=== PATIENT | female | born 1965 | race American Indian/Alaskan Native ===

== ENCOUNTER 2019-02-13 07:19 | Emergency (ER) | payer MEDICARE ==
[2019-02-13 07:25] VITALS: BP 154/72
[2019-02-13] MEDS ORDERED: NORCO 5/325 PO ONE (08:56)
--- NOTE | 2019-02-13 08:59 | Emergency Department Report ---
HPI - General Chief Complaint: Back Pain/Injury Time Seen by Provider: 02/13/19 08:45 - HPI HPI: 53 yo AA F presents to the ED with two complaints. First, the patient has been dealing with a mixed dry and productive cough for the past two days. She denies any fever, N/V, SOB. Secondly, the patient complains of right lower lateral back pain that radiates around to the front. It worens with movement and palpation. No trauma or falls or inciting events. She took some Aleve at 5 AM with some mild transient relief. She also says that yesterday, and through the evening, she had some pain to the left flank and abdomen that was "moving around" but has since resolved. No problems with bowel or bladder, numbness or paresthesias, or any neurological deficits. No recent travel or sick contacts at home. She has a pmhx of hypothyroidism and OA, and GERD. ED Past Medical Hx - Past Medical History Additional medical history: thyroid - Surgical History Additional Surgical History: thyroidectomy, goiter removal - Social History Smoking Status: Never Smoker Substance Use Type: None - Medications Home Medications: Home Medications Medication Instructions Recorded Confirmed Last Taken Type Benzonatate [Tessalon Perles] 100 mg PO Q8HR PRN #20 capsule 02/13/19 Unknown Rx Cyclobenzaprine [Flexeril] 10 mg PO TID PRN #12 tablet 02/13/19 Unknown Rx ED Review of Systems ROS: Stated complaint: LOWER BACK PAIN Other details as noted in HPI Comment: All other systems reviewed and negative Constitutional: denies: chills, fever Eyes: denies: eye pain, vision change ENT: denies: ear pain, throat pain Respiratory: denies: cough, shortness of breath Cardiovascular: denies: chest pain, palpitations Gastrointestinal: abdominal pain. denies: vomiting Genitourinary: denies: dysuria, discharge Musculoskeletal: back pain. denies: arthralgia Skin: denies: rash, lesions Neurological: denies: headache, weakness Physical Exam - Physical Exam Vital Signs: Vital Signs 02/13/19 07:23 Temperature 97.6 F Pulse Rate 79 Respiratory 20 Rate Blood Pressure 154/72 O2 Sat by Pulse 100 Oximetry Physical Exam: GENERAL: The patient is well-developed well-nourished. HENT: Normocephalic. Atraumatic. Patient has moist mucous membranes. EYES: Extraocular motions are intact. Pupils equal reactive to light bilaterally. NECK: Supple. Trachea is midline. CHEST/LUNGS: Clear to auscultation. Occasional productive sounding cough is heard during examination. No tachypnea or accessory muscle use. There is no respiratory distress noted. HEART/CARDIOVASCULAR: Regular. There is no tachycardia. There is no murmur. ABDOMEN: Abdomen is soft, nontender. Patient has normal bowel sounds. There is no abdominal distention. SKIN: Skin is warm and dry. NEURO: The patient is awake, alert, and oriented. The patient is cooperative. The patient has no focal neurologic deficits. The patient has normal speech. MUSCULOSKELETAL: There is no tenderness or deformity. There is no limitation range of motion. There is no evidence of acute injury. BACK: No midline thoracic or lumbar tenderness to palpation, step-off or deformity. There is some reproducible right lateral back pain to palpation. ED Course Vital Signs 02/13/19 07:23 Temperature 97.6 F Pulse Rate 79 Respiratory 20 Rate Blood Pressure 154/72 O2 Sat by Pulse 100 Oximetry ED Medical Decision Making - Lab Data Result diagrams: 02/13/19 09:33 02/13/19 09:33 - Radiology Data Radiology results: report reviewed, image reviewed interpreted by me: Chest x-ray does not show any acute process. There are no pleural effusions, obvious pneumonia and there is no pneumothorax. CT ABDOMEN PELVIS WITHOUT CONTRAST: HISTORY: Right flank pain. COMPARISON: none. TECHNIQUE: Helical CT in 1.25mm intervals without IV contrast. Sagittal and coronal reconstructions. FINDINGS: Lung bases: Normal. Liver: Within normal limits. Calcified granulomas noted in the central liver. Biliary system: Normal. Pancreas: Normal. Spleen: Normal. Kidneys/ureters/bladder: Normal. Adrenal glands: There is an approximate 2 cm low density left adrenal lesion with internal density measuring -9 Hounsfield units. This is suggestive of an adrenal adenoma. The right adrenal gland is normal. Aorta: Normal. Intestines: Within normal limits given no oral contrast was administered. Appendix: Normal. Pelvic viscera: Normal. Ascites: None. Adenopathy: None. Musculoskeletal: Intact. Mild degenerative changes in the visualized spine. No fracture or suspicious bony lesion left L5 hemitransitional vertebra is noted. IMPRESSION: No acute process is identified. Left adrenal adenoma. Mild degenerative changes in the spine. Transcribed By: TTR Dictated By: BECKIE PICKENS JR, MD Electronically Authenticated By: BECKIE PICKENS JR, MD Signed Date/Time: 02/13/19 1113 - Medical Decision Making Patient presents with 2 complaints. Regarding her cough, an x-ray was done that does not show any pneumonia, pleural effusions, pneumothorax, focal consolidation, or any other acute process. She will be given an antitussive medication. Regarding her low back pain and her previous complaints of left flank and abdominal pain, a CT scan of the abdomen and pelvis was done without contrast that did not show any signs of nephrolithiasis or any other acute process but incidentally she has a large left adrenal adenoma. This incidental finding was discussed with the patient for follow-up with her primary care physician. The rest of her labs were unremarkable. She was given a dose of [place] for her discomfort with some improvement. Despite her back pain, she has no problems with bowel or bladder, numbness or paresthesias or any neurological deficits. She was seen ambulatory prior to discharge. She appears low suspicion for any of the emergent back condition such as cauda equina, epidural abscess or cord compression syndrome. - Differential Diagnosis nephrolithiasis, pyelonephritis, UTI, lumbar strain Critical Care Time: No Critical care attestation.: If time is entered above; I have spent that time in minutes in the direct care of this critically ill patient, excluding procedure time. ED Disposition Clinical Impression: Cough Upper respiratory infection Qualifiers: URI type: unspecified URI Qualified Code(s): J06.9 - Acute upper respiratory infection, unspecified Back pain Qualifiers: Back pain location: low back pain Chronicity: unspecified Back pain laterality: unspecified Sciatica presence: without sciatica Qualified Code(s): M54.5 - Low back pain Disposition: DC-01 TO HOME OR SELFCARE Is pt being admited?: No Condition: Stable Instructions: Upper Respiratory Infection (ED), Back Pain (ED) Additional Instructions: Please follow-up with your primary care physician in the next few days. Return to the emergency Department with any worsening of your symptoms or any acute distress. You have been prescribed a medication that is sedating and therefore should not be taken prior to driving, working, and responsible for children and in no way should be mixed with alcohol of any quantity. Prescriptions: Cyclobenzaprine [Flexeril] 10 mg PO TID PRN #12 tablet PRN Reason: Muscle Spasm Benzonatate [Tessalon Perles] 100 mg PO Q8HR PRN #20 capsule PRN Reason: Cough Referrals: MIGUEL LAFLEUR [Primary Care Provider] - 2-3 Days Forms: Work/School Release Form(ED) Time of Disposition: 11:37
--- NOTE | 2019-02-13 09:45 | XRay Report ---
XRAY CHEST TWO VIEWS: 02/13/19 07:19:00 CLINICAL: Cough. COMPARISON: None FINDINGS: Normal heart and pulmonary vasculature. The lungs are normally expanded and clear.Degenerative changes in the spine. IMPRESSION: No acute cardiopulmonary process.
[2019-02-13 10:15] LABS: Alanine Aminotransferase 14 units/L (7-56); Albumin 3.6 g/dL (3.9-5); BUN/Creatinine Ratio 13; Blood Urea Nitrogen 10 mg/dL (7-17); Calcium 8.7 mg/dL (8.4-10.2); Hemolysis Index 18
[2019-02-13 10:38] LABS: Basophils % (Auto) 0.2 % (0.0-1.8); Eosinophils # (Auto) 0.1 K/mm3 (0.0-0.4); Eosinophils % (Auto) 1.6 % (0.0-4.3); Hematocrit 37.8 % (30.3-42.9); Hemoglobin 12.7 gm/dl (10.1-14.3); Lymphocytes # (Auto) 1.5 K/mm3 (1.2-5.4); Mean Corpuscular HGB Conc 34 % (30-34); Mean Corpuscular Volume 95 fl (79-97); Monocytes # (Auto) 0.5 K/mm3 (0.0-0.8); Monocytes % (Auto) 9.8 % (0.0-7.3); Platelet Count 284 K/mm3 (140-440); Red Blood Count 3.97 M/mm3 (3.65-5.03); Red Cell Distribution Width 13.9 % (13.2-15.2)
--- NOTE | 2019-02-13 11:17 | Cat Scan Report ---
CT ABDOMEN PELVIS WITHOUT CONTRAST: HISTORY: Right flank pain. COMPARISON: none. TECHNIQUE: Helical CT in 1.25mm intervals without IV contrast. Sagittal and coronal reconstructions. FINDINGS: Lung bases: Normal. Liver: Within normal limits. Calcified granulomas noted in the central liver. Biliary system: Normal. Pancreas: Normal. Spleen: Normal. Kidneys/ureters/bladder: Normal. Adrenal glands: There is an approximate 2 cm low density left adrenal lesion with internal density measuring -9 Hounsfield units. This is suggestive of an adrenal adenoma. The right adrenal gland is normal. Aorta: Normal. Intestines: Within normal limits given no oral contrast was administered. Appendix: Normal. Pelvic viscera: Normal. Ascites: None. Adenopathy: None. Musculoskeletal: Intact. Mild degenerative changes in the visualized spine. No fracture or suspicious bony lesion left L5 hemitransitional vertebra is noted. IMPRESSION: No acute process is identified. Left adrenal adenoma. Mild degenerative changes in the spine.
[2019-02-13 11:46] LABS: Bilirubin,Urine NEG (Negative); Blood,Urine NEG (Negative); Color,Urine Yellow (Yellow); Mucus,Urine FEW /HPF; Protein,Urine <15 mg/dL mg/dL (Negative); Urobilinogen,Urine < 2.0 mg/dL (<2.0); WBC,Urine < 1.0 /HPF (0.0-6.0)
== END 2019-02-13 11:50 | disposition home or self-care (01) ==
LOC: ED 07:19
DX: J06.9 Acute upper respiratory infection, unspecified (principal); M54.5 Low back pain
CPT/HCPCS: 36415; 71046; 74176; 80053; 81001; 85025; 99284

== ENCOUNTER 2019-10-27 03:52 | Emergency (ER) | payer MEDICARE ==
--- NOTE | 2019-10-27 04:34 | XRay Report ---
CHEST 1 VIEW, 10/27/2019 4:26 AM CLINICAL INFORMATION/INDICATION: Chest pain COMPARISON: Chest radiograph, 02/13/2019 FINDINGS: SUPPORT DEVICES: None. HEART: The cardiac silhouette is normal in size. LUNGS/PLEURA: The lungs are clear of focal airspace disease or significant pleural effusion. ADDITIONAL FINDINGS: No additional acute findings. IMPRESSION: 1. No evidence of acute cardiopulmonary process. Signer Name: Tanisha Cárdenas MD Signed: 10/27/2019 4:30 AM Workstation Name: [email or web address]
[2019-10-27 04:55] LABS: Basophils % (Auto) 0.4 % (0.0-1.8); Eosinophils # (Auto) 0.1 K/mm3 (0.0-0.4); Hematocrit 38.2 % (30.3-42.9); Hemoglobin 12.7 gm/dl (10.1-14.3); Lymphocytes # (Auto) 1.7 K/mm3 (1.2-5.4); Lymphocytes % (Auto) 26.6 % (13.4-35.0); Mean Corpuscular HGB Conc 33 % (30-34); Mean Corpuscular Volume 94 fl (79-97); Monocytes # (Auto) 0.6 K/mm3 (0.0-0.8); Platelet Count 319 K/mm3 (140-440); Red Blood Count 4.05 M/mm3 (3.65-5.03); Red Cell Distribution Width 13.7 % (13.2-15.2)
[2019-10-27 05:14] LABS: BUN/Creatinine Ratio 16; Blood Urea Nitrogen 13 mg/dL (7-17); Calcium 9.3 mg/dL (8.4-10.2); Hemolysis Index 8
--- NOTE | 2019-10-27 08:40 | Emergency Department Report ---
ED Chest Pain HPI - General Chief Complaint: Chest Pain Stated Complaint: CHEST PAIN DIZZY LT SIDE AND LEG PAIN Time Seen by Provider: 10/27/19 07:47 Source: patient Mode of arrival: Ambulatory Limitations: No Limitations - History of Present Illness Initial Comments: Reports symptoms after taking a Tylenol with codeine yesterday around 6p for chronic back and hip pain. Reports she was prescribed the Tylenol 3 from the dentist a while back. Denies trauma, drugs, alcohol MD Complaint: chest pain -: Gradual Onset: during rest Pain Location: substernal Pain Radiation: none Severity: mild Severity scale (0 -10): 2 Quality: aching Consistency: intermittent Improves With: nothing Worsens With: nothing re: denies: nausea, vomting, diaphoresis, dyspnea, sense of impending doom Other Symptoms: palpitations, other (dizziness). denies: cough, fever, syncope, rash, acid taste in mouth, leg swelling, burping - Related Data Previous Rx's Medication Instructions Recorded Last Taken Type Benzonatate [Tessalon Perles] 100 mg PO Q8HR PRN #20 capsule 02/13/19 Unknown Rx Cyclobenzaprine [Flexeril] 10 mg PO TID PRN #12 tablet 02/13/19 Unknown Rx methOCARBAMOL [Robaxin TAB] 750 mg PO Q8H PRN #12 tablet 10/27/19 Unknown Rx Allergies Allergy/AdvReac Type Severity Reaction Status Date / Time No Known Allergies Allergy Verified 10/27/19 08:14 Heart Score - HEART Score History: Slightly suspicious EKG: Normal Age: 45-65 Risk factors: 1-2 risk factors Troponin: < normal limit HEART Score: 2 ED Review of Systems ROS: Stated complaint: CHEST PAIN DIZZY LT SIDE AND LEG PAIN Other details as noted in HPI Other: GENERAL: No weight change, fatigue, fever, chills, or night sweats SKIN: No changes in skin or hair, no itching, no rashes, no jaundice HEAD: No trauma EYES: No blurriness, tearing, itching, acute visual loss, conjunctival discoloration, or scleral icterus EARS: No hearing loss, tinnitus, vertigo, or earache NOSE: No rhinorrhea, stuffiness, sneezing, itching, or epistaxis MOUTH: No bleeding gums, hoarseness, sore throat, or swelling CARDIAC: Chest pain, palpitations. No new murmur, dyspnea on exertion, orthopnea, PND, or edema RESPIRATORY: No shortness of breath, wheeze, cough, sputum production, hemoptysis GI: No abdominal pain, nausea, vomiting, dysphagia, diarrhea, constipation, hematemesis, melena, hematochezia URINARY: No frequency, urgency, polyuria, dysuria, hematuria, or incontinence MUSCULOSKELETAL: No muscle weakness, joint stiffness, decrease in range of motion, redness, swelling NEUROLOGIC: Dizziness, lightheadedness after taking a Tylenol with codeine. No headache, syncope, loss of sensation, numbness, tingling, tremors, weakness, par alysis, seizures HEMATOLOGIC: No anemia, easy bruising, bleeding, petechiae, or purpura ENDOCRINE: No hot or cold intolerance, sweating, polyuria, polydipsia or, polyphagia no thyroid problems PSYCHIATRIC: No change in mood, no anxiety, no depression ED Past Medical Hx - Past Medical History Previous Medical History?: Yes Hx Hypertension: Yes Additional medical history: thyroid - Surgical History Past Surgical History?: Yes Additional Surgical History: thyroidectomy, goiter removal - Social History Smoking Status: Never Smoker Substance Use Type: None - Medications Home Medications: Home Medications Medication Instructions Recorded Confirmed Last Taken Type Benzonatate [Tessalon Perles] 100 mg PO Q8HR PRN #20 capsule 02/13/19 Unknown Rx Cyclobenzaprine [Flexeril] 10 mg PO TID PRN #12 tablet 02/13/19 Unknown Rx methOCARBAMOL [Robaxin TAB] 750 mg PO Q8H PRN #12 tablet 10/27/19 Unknown Rx ED Physical Exam - General Limitations: No Limitations - Other Other exam information: GENERAL: Patient in no acute distress HEAD: Normocephalic, atraumatic EYES: PERRLA, EOM intact, no scleral icterus, no conjunctival hemorrhage, visual hardin and acuity wnl NOSE: No tenderness, discharge, sinus tenderness MOUTH: No erythema, bleeding, exudate HEART: Regular rate and rhythm, no murmur, S1-S2 are auscultated, no edema, pulses are symmetric LUNGS: No respiratory distress. Bilateral breath sounds, No tachypnea, No retractions, No wheezing, rales, rhonchi ABDOMEN: Normal bowel sounds, abdomen soft, no tenderness, no rebound, no guarding, no distention, no masses, no CVA tenderness MUSCULOSKELETAL: Normal joint range of motion, no redness, no swelling, no tenderness NEUROLOGIC: GCS 15, Alert and Oriented x3, Cranial nerves intact, normal sensation, normal strength, no cerebellar deficit, NIHSS 0 PSYCHIATRIC: No homicidal or suicidal ideation, no anxiety, no depression, no hallucinations SKIN: Skin is warm and dry, no wounds, no rashes ED Course Vital Signs 10/27/19 10/27/19 10/27/19 04:03 07:50 08:01 Temperature 97.9 F Pulse Rate 75 62 61 Respiratory 20 16 10 L Rate Blood Pressure 174/94 183/67 O2 Sat by Pulse 100 100 98 Oximetry 10/27/19 10/27/19 10/27/19 08:15 08:31 08:45 Temperature Pulse Rate 60 58 L Respiratory 16 12 Rate Blood Pressure 200/81 194/92 194/92 O2 Sat by Pulse 98 99 100 Oximetry 10/27/19 10/27/19 10/27/19 09:01 09:15 09:31 Temperature Pulse Rate 62 66 55 L Respiratory 16 15 15 Rate Blood Pressure 194/92 187/77 186/86 O2 Sat by Pulse 100 97 96 Oximetry 10/27/19 10/27/19 10/27/19 09:57 10:01 10:15 Temperature Pulse Rate 64 76 60 Respiratory 19 19 13 Rate Blood Pressure 186/86 113/48 172/79 O2 Sat by Pulse 95 99 100 Oximetry 10/27/19 10/27/19 10/27/19 10:30 10:45 11:00 Temperature Pulse Rate 62 56 L 58 L Respiratory 19 14 14 Rate Blood Pressure 177/154 178/86 176/83 O2 Sat by Pulse 93 98 98 Oximetry 10/27/19 10/27/19 11:15 11:31 Temperature Pulse Rate 59 L 68 Respiratory 14 15 Rate Blood Pressure 180/86 186/81 O2 Sat by Pulse 99 Oximetry ED Medical Decision Making - Lab Data Result diagrams: 10/27/19 04:39 10/27/19 04:39 Laboratory Results - last 24 hr 10/27/19 10/27/19 04:39 04:39 WBC 6.4 RBC 4.05 Hgb 12.7 Hct 38.2 MCV 94 MCH 31 MCHC 33 RDW 13.7 Plt Count 319 Lymph % (Auto) 26.6 [place] % (Auto) 9.0 H Eos % (Auto) 2.0 Baso % (Auto) 0.4 Lymph # 1.7 [place] # 0.6 Eos # 0.1 Baso # 0.0 Seg Neutrophils % 62.0 Seg Neutrophils # 4.0 Sodium 141 Potassium 4.2 Chloride 102.5 Carbon Dioxide 26 Anion Gap 17 BUN 13 Creatinine 0.8 Estimated GFR > 60 BUN/Creatinine Ratio 16 Glucose 106 H Calcium 9.3 Troponin T < 0.010 - EKG Data When compared to previous EKG there are: no significant change - Radiology Data Radiology results: report reviewed - Medical Decision Making Patient comfortable. Updated with results. Plan discharge with outpatient follow up. Return if any worsening. Critical care attestation.: If time is entered above; I have spent that time in minutes in the direct care of this critically ill patient, excluding procedure time. ED Disposition Clinical Impression: Back pain at L4-L5 level Chest pain Qualifiers: Chest pain type: unspecified Qualified Code(s): R07.9 - Chest pain, unspecified Medication reaction Qualifiers: Encounter type: initial encounter Qualified Code(s): T50.905A - Adverse effect of unspecified drugs, medicaments and biological substances, initial encounter Disposition: DC-01 TO HOME OR SELFCARE Is pt being admited?: No Condition: Stable Instructions: Chest Pain (ED) Prescriptions: methOCARBAMOL [Robaxin TAB] 750 mg PO Q8H PRN #12 tablet PRN Reason: Spasm Referrals: PRIMARY CAREMD [Primary Care Provider] - 2-[address] [facility] [place] [Outside] - as needed SAÚL WALLACE MD [Staff Physician] - 2-3 Days MIKAELA CAMERON MD [Staff Physician] - as needed Time of Disposition: 10:48
[2019-10-27] MEDS ORDERED: SODIUM CHLORIDE 0.9% 1000 ML 500 ML IV ONE (09:31)
--- NOTE | 2019-10-27 10:21 | Cat Scan Report ---
CTA CHEST WITH CONTRAST INDICATION : Pain. TECHNIQUE: Axial imaging performed through the chest, with contrast bolus timing set to maximize opa cification of the pulmonary arteries. Sagittal and coronal reformatted images. 3-plane MIP reformatte d images were obtained. All CT scans at this location are performed using CT dose reduction for ALAR A by means of automated exposure control. 100 mL of intravenous contrast administered. COMPARISON: None FINDINGS: Bolus: Contrast bolus timing is adequate. PTE: No filling defect is present to suggest PTE. Mediastinum: Heart and great vessels appear normal. No pathologic mediastinal adenopathy. Lungs: Lungs are clear. Bones: Degenerative changes in the spine with nothing acute. Upper abdomen: Limited imaging of the upper abdomen shows nothing acute. IMPRESSION: Negative for PTE. Clear lungs. Signer Name: Jose Knapp Jr, MD Signed: 10/27/2019 10:16 AM Workstation Name: [id number]
[2019-10-27 11:42] VITALS: BP 186/81
== END 2019-10-27 11:33 | disposition home or self-care (01) ==
LOC: ED 03:52
DX: M54.5 Low back pain (principal); R07.89 Other chest pain; T50.995A Adverse effect of other drugs, medicaments and biological substances, initial encounter; I10 Essential (primary) hypertension; Z98.890 Other specified postprocedural states; Z79.899 Other long term (current) drug therapy; X58.XXXA Exposure to other specified factors, initial encounter; Y93.89 Activity, other specified; Y92.89 Other specified places as the place of occurrence of the external cause; Y99.8 Other external cause status
CPT/HCPCS: 36415; 71045; 71275; 80048; 84484; 85025; 85379; 93005; 93010; 99284; Q9967

== ENCOUNTER 2020-02-20 12:47 | Emergency (ER) | payer MEDICARE ==
--- NOTE | 2020-02-20 13:28 | XRay Report ---
CHEST 2 VIEWS INDICATION: Chest pain, SOB. COMPARISON: 01/26/2020 FINDINGS: Support devices: None. Heart: Within normal limits. Lungs/pleura: No acute air space or interstitial disease. No pneumothorax. Additional findings: None. IMPRESSION: Normal chest x-ray Signer Name: Jose Knapp Jr, MD Signed: 02/20/2020 1:23 PM Workstation Name: [id number]
--- NOTE | 2020-02-20 13:54 | Emergency Department Report ---
ED General Adult HPI - General Chief complaint: Upper Respiratory Infection Stated complaint: SOB/BACK/STOMACH PAIN Time Seen by Provider: 02/20/20 13:54 Source: patient Mode of arrival: Ambulatory Limitations: No Limitations - History of Present Illness Initial comments: Ms. Nascimento is a 54-year-old -[place] female who comes to the emergency room with numerous vague complaints today. She states that she is having chest tightness under both her breasts that radiates around to her back she endorses shortness of breath with activity, generalized abdominal pain and headache. Patient's blood pressure was initially elevated in triage but when repeated in ACC had normalized. Patient takes losartan 50 mg daily for her blood pressure. Patient states that she comes to the emergency room to make sure that she does not have any of the diseases that her mother or father had when they . Her mother February 02 I suggest there is a component of anxiety to this emergency room visit. Patient denies any cough, fever, chills, vomiting or diarrhea. Patient denies any swelling of her legs. She has no recent travel. Patient normally sees Dr. Salinas at the [facility] for her primary care. She states that due to COVID-19 she has been unable to get into their office. Patient states that she was given a GI referral in the past for her stomach but did not follow-up. She also states that she was given a referral to a neurologist for her headaches and she did not follow-up. Patient is obese with hypertension. She has no family history of coronary artery disease. She does not smoke and never has smoked. -: Gradual Treatments Prior to Arrival: none - Related Data Previous Rx's Medication Instructions Recorded Last Taken Type hydroCHLOROthiazide [HCTZ] 25 mg PO QDAY #30 tablet 02/20/20 Unknown Rx Allergies Allergy/AdvReac Type Severity Reaction Status Date / Time hydrocodone Allergy Shortness Verified 02/20/20 14:36 of Breath ibuprofen Allergy Shortness Verified 02/20/20 14:57 of Breath tramadol Allergy Itching Verified 02/20/20 14:36 ED Review of Systems ROS: Stated complaint: SOB/BACK/STOMACH PAIN Other details as noted in HPI Comment: All other systems reviewed and negative ED Past Medical Hx - Past Medical History Previous Medical History?: Yes Hx Hypertension: Yes Hx CVA: No Hx Heart Attack/AMI: No Hx Congestive Heart Failure: No Hx Diabetes: No Hx Deep Vein Thrombosis: No Hx Pulmonary Embolism: No Hx GERD: Yes Hx Liver Disease: No Hx Renal Disease: No Hx of Cancer: No Hx Sickle Cell Disease: No Hx Arthritis: Yes (osteo) Hx Headaches / Migraines: No Hx Seizures: No Hx Kidney Stones: No Hx Psychiatric Treatment: No Hx Asthma: No Hx COPD: No Hx Tuberculosis: No Hx Dementia: No Hx HIV: No Additional medical history: Hypothyroid, Bursitis, obese - Surgical History Past Surgical History?: Yes Additional Surgical History: thyroidectomy, goiter removal - Family History Family history: other (mom dec lungs ca; dad dec cva) - Social History Smoking Status: Never Smoker Substance Use Type: None - Medications Home Medications: Home Medications Medication Instructions Recorded Confirmed Last Taken Type hydroCHLOROthiazide [HCTZ] 25 mg PO QDAY #30 tablet 02/20/20 Unknown Rx ED Physical Exam - General Limitations: No Limitations General appearance: alert, in no apparent distress - Head Head exam: Present: atraumatic, normocephalic - Eye Eye exam: Present: normal appearance - ENT ENT exam: Present: mucous membranes moist - Neck Neck exam: Present: normal inspection - Respiratory Respiratory exam: Present: normal lung sounds bilaterally. Absent: respiratory distress - Cardiovascular Cardiovascular Exam: Present: regular rate, normal rhythm. Absent: systolic murmur, diastolic murmur, rubs, gallop - GI/Abdominal GI/Abdominal exam: Present: soft, normal bowel sounds - Extremities Exam Extremities exam: Present: normal inspection - Back Exam Back exam: Present: normal inspection - Neurological Exam Neurological exam: Present: alert, oriented X3 - Psychiatric Psychiatric exam: Present: normal affect, normal mood - Skin Skin exam: Present: warm, dry, intact, normal color. Absent: rash ED Course Vital Signs 02/20/20 02/20/20 12:52 14:51 Temperature 97.8 F Pulse Rate 86 72 Respiratory 20 9 L Rate Blood Pressure 184/101 Blood Pressure 152/80 [Right] O2 Sat by Pulse 99 100 Oximetry - Reevaluation(s) Reevaluation #1: 02/20/20 14:03 home rx losartan synthroid ppi Reevaluation #2: 02/20/20 Home medications losartan, a PPI for her stomach and Synthroid for her thyroid. ED Medical Decision Making - Lab Data Result diagrams: 02/20/20 14:37 02/20/20 14:37 - EKG Data -: EKG Interpreted by Me Rate: normal - EKG Data When compared to previous EKG there are: no significant change Interpretation: no acute changes - Radiology Data Radiology results: report reviewed, image reviewed nap - Medical Decision Making Vital Signs 02/20/20 02/20/20 12:52 14:51 Temperature 97.8 F Pulse Rate 86 72 Respiratory 20 9 L Rate Blood Pressure 184/101 Blood Pressure 152/80 [Right] O2 Sat by Pulse 99 100 Oximetry Vital Signs 02/20/20 02/20/20 12:52 14:51 Temperature 97.8 F Pulse Rate 86 72 Respiratory 20 9 L Rate Blood Pressure 184/101 Blood Pressure 152/80 [Right] O2 Sat by Pulse 99 100 Oximetry Lab Results 02/20/20 02/20/20 Range/Units 14:37 14:37 WBC 8.6 (4.5-11.0) K/mm3 RBC 4.67 (3.65-5.03) M/mm3 Hgb 14.4 H (10.1-14.3) gm/dl Hct 44.7 H (30.3-42.9) % MCV 96 (79-97) fl MCH 31 (28-32) pg MCHC 32 (30-34) % RDW 13.7 (13.2-15.2) % Plt Count 354 (140-440) K/mm3 Sodium 139 (137-145) mmol/L Potassium 4.0 (3.6-5.0) mmol/L Chloride 100.5 (98-107) mmol/L Carbon Dioxide 26 (22-30) mmol/L Anion Gap 17 mmol/L BUN 10 (7-17) mg/dL Creatinine 0.8 (0.7-1.2) mg/dL Estimated GFR > 60 ml/min BUN/Creatinine Ratio 13 % Glucose 103 H (65-100) mg/dL Calcium 9.9 (8.4-10.2) mg/dL Total Bilirubin 0.30 (0.1-1.2) mg/dL AST 16 (5-40) units/L ALT 13 (7-56) units/L Alkaline Phosphatase 88 (35-129) units/L Troponin T < 0.010 (0.00-0.029) ng/mL Total Protein 8.0 (6.3-8.2) g/dL Albumin 4.0 (3.9-5) g/dL Albumin/Globulin Ratio 1.0 % Blood pressure on admission to triage was high however when repeated in the ER had normalized. Patient I think has a large component of anxiety to her ER visit today. Labs were noted. Troponin is negative. Twelve-lead EKG is without acute changes. Patient has no prior cardiac history. Chest x-ray noted. Patient's vital signs are stable she is afebrile. She is being discharged home with PCP follow-up. I have added HCTZ to her blood pressure regimen given that the patient states her blood pressure is been high. I suspect this is in part due to the anxiety and grief of recent loss of her mother. Patient has been instructed to monitor blood pressure and follow-up with her primary care, neurologist, GI doctor: She has been given a cardiac referral. - Differential Diagnosis a/c htn Critical care attestation.: If time is entered above; I have spent that time in minutes in the direct care of this critically ill patient, excluding procedure time. ED Disposition Clinical Impression: Chronic hypertension, Non-cardiac chest pain, Anxiety, Obesity Disposition: - TO HOME OR SELFCARE Is pt being admited?: No Does the pt Need Aspirin: No Condition: Stable Instructions: Chest Pain (ED), Hypertension (ED) Prescriptions: hydroCHLOROthiazide [HCTZ] 25 mg PO QDAY #30 tablet Referrals: YULISSA CANDELARIA MD [Staff Physician] - 3-5 Days JACKELINE POSADA MD [Referring] - 3-5 Days MADONNA RITCHIE MD [Staff Physician] - 3-5 Days Time of Disposition: 14:04
[2020-02-20] MEDS ORDERED: ONDANSETRON 4 MG ODT TAB PO ONE (14:02)
[2020-02-20] MEDS ORDERED: cloNIDine 0.2 MG TAB PO ONE (14:02)
[2020-02-20] MEDS ORDERED: hydroCHLOROthiazide 25 MG TAB PO ONE (14:04)
[2020-02-20] MEDS ORDERED: IBUPROFEN 800 MG TAB PO ONE (14:05)
[2020-02-20 15:15] LABS: Hematocrit 44.7 % (30.3-42.9); Hemoglobin 14.4 gm/dl (10.1-14.3); Mean Corpuscular HGB Conc 32 % (30-34); Mean Corpuscular Volume 96 fl (79-97); Platelet Count 354 K/mm3 (140-440); Red Blood Count 4.67 M/mm3 (3.65-5.03); Red Cell Distribution Width 13.7 % (13.2-15.2)
[2020-02-20 15:40] LABS: Alanine Aminotransferase 13 units/L (7-56); BUN/Creatinine Ratio 13; Blood Urea Nitrogen 10 mg/dL (7-17); Calcium 9.9 mg/dL (8.4-10.2); Hemolysis Index 28
[2020-02-20 16:17] VITALS: BP 160/84
== END 2020-02-20 16:17 | disposition home or self-care (01) ==
LOC: ED 12:47
DX: I10 Essential (primary) hypertension (principal); E66.8 Other obesity; R07.89 Other chest pain; F41.9 Anxiety disorder, unspecified; K21.9 Gastro-esophageal reflux disease without esophagitis; M13.88 Other specified arthritis, other site; E06.9 Thyroiditis, unspecified; Z88.6 Allergy status to analgesic agent
CPT/HCPCS: 36415; 71046; 80053; 84484; 85027; 93005; Q0162

== ENCOUNTER 2020-03-11 19:49 | Emergency (ER) | payer MEDICARE ==
[2020-03-11 20:00] VITALS: BP 136/92
[2020-03-11 22:12] LABS: Basophils # (Auto) 0.1 K/mm3 (0.0-0.1); Basophils % (Auto) 0.6 % (0.0-1.8); Eosinophils # (Auto) 0.1 K/mm3 (0.0-0.4); Eosinophils % (Auto) 0.6 % (0.0-4.3); Hematocrit 39.7 % (30.3-42.9); Hemoglobin 13.3 gm/dl (10.1-14.3); Lymphocytes # (Auto) 2.3 K/mm3 (1.2-5.4); Lymphocytes % (Auto) 27.5 % (13.4-35.0); Mean Corpuscular HGB Conc 34 % (30-34); Mean Corpuscular Volume 94 fl (79-97); Monocytes # (Auto) 0.8 K/mm3 (0.0-0.8); Monocytes % (Auto) 9.8 % (0.0-7.3); Platelet Count 303 K/mm3 (140-440); Red Blood Count 4.25 M/mm3 (3.65-5.03); Red Cell Distribution Width 13.3 % (13.2-15.2)
[2020-03-11 22:25] LABS: INR 1.01 (0.87-1.13)
[2020-03-11 22:26] LABS: Partial Thromboplastin Time 27.2 Sec. (24.2-36.6)
--- NOTE | 2020-03-11 22:28 | Emergency Department Report ---
ED General Adult HPI - General Chief complaint: Back Pain/Injury Stated complaint: WEAK,JITTERY,HEADACHE Time Seen by Provider: 03/11/20 21:46 Source: patient Mode of arrival: Ambulatory Limitations: No Limitations - History of Present Illness Initial comments: 54-year-old female with history of hypertension, anxiety, GERD, hypothyroidism, presents to ED with complaint of feeling jittery and also experiencing left scapular pain. Patient states the subscapular pain has been ongoing for "several months." Patient also states she has been feeling "jittery "on the inside. This is been ongoing since her mother last month. She reports that it does feel like anxiety, however it is usually relieved with her Paxil. Patient denies headache, nausea or vomiting, abdominal pain, leg pain or swelling. Patient reports associated shortness of breath. -: month(s) (1) Location: back Radiation: non-radiation Quality: aching Consistency: intermittent Improves with: none Worsens with: none Associated Symptoms: shortness of breath. denies: chest pain, cough, fever/chills, nausea/vomiting - Related Data Previous Rx's Medication Instructions Recorded Last Taken Type hydroCHLOROthiazide [HCTZ] 25 mg PO QDAY #30 tablet 02/20/20 Unknown Rx methOCARBAMOL [Robaxin TAB] 500 mg PO Q8HR PRN #20 tablet 03/12/20 Unknown Rx Allergies Allergy/AdvReac Type Severity Reaction Status Date / Time hydrocodone Allergy Shortness Verified 02/20/20 14:36 of Breath ibuprofen Allergy Shortness Verified 02/20/20 14:57 of Breath tramadol Allergy Itching Verified 02/20/20 14:36 ED Review of Systems ROS: Stated complaint: WEAK,JITTERY,HEADACHE Other details as noted in HPI Comment: All other systems reviewed and negative Constitutional: denies: chills, fever Respiratory: shortness of breath. denies: cough Cardiovascular: denies: chest pain Musculoskeletal: other (denies leg pain and swelling) Psychiatric: anxiety ED Past Medical Hx - Past Medical History Hx Hypertension: Yes Hx CVA: No Hx Heart Attack/AMI: No Hx Congestive Heart Failure: No Hx Diabetes: No Hx Deep Vein Thrombosis: No Hx Pulmonary Embolism: No Hx GERD: Yes Hx Liver Disease: No Hx Renal Disease: No Hx Sickle Cell Disease: No Hx Arthritis: Yes (osteo) Hx Headaches / Migraines: No Hx Seizures: No Hx Kidney Stones: No Hx Psychiatric Treatment: Yes (ANXIETY) Hx Asthma: No Hx COPD: No Hx Tuberculosis: No Hx Dementia: No Hx HIV: No Additional medical history: Hypothyroid, Bursitis, obese - Surgical History Past Surgical History?: Yes Additional Surgical History: thyroidectomy, goiter removal - Social History Smoking Status: Never Smoker Substance Use Type: None - Medications Home Medications: Home Medications Medication Instructions Recorded Confirmed Last Taken Type hydroCHLOROthiazide [HCTZ] 25 mg PO QDAY #30 tablet 02/20/20 Unknown Rx methOCARBAMOL [Robaxin TAB] 500 mg PO Q8HR PRN #20 tablet 03/12/20 Unknown Rx ED Physical Exam - General Limitations: No Limitations General appearance: alert, in no apparent distress, obese - Head Head exam: Present: atraumatic, normocephalic - Eye Eye exam: Present: normal appearance, EOMI - ENT ENT exam: Present: mucous membranes moist - Neck Neck exam: Present: normal inspection - Respiratory Respiratory exam: Present: normal lung sounds bilaterally. Absent: respiratory distress - Cardiovascular Cardiovascular Exam: Present: regular rate, normal rhythm - GI/Abdominal GI/Abdominal exam: Present: soft. Absent: distended, tenderness - Extremities Exam Extremities exam: Present: normal inspection. Absent: pedal edema, calf tenderness - Back Exam Back exam: Present: tenderness (left subscapular area) - Neurological Exam Neurological exam: Present: alert, oriented X3 - Psychiatric Psychiatric exam: Present: normal affect, normal mood - Skin Skin exam: Present: warm, dry, intact, normal color ED Course Vital Signs 03/11/20 19:51 Temperature 98.3 F Pulse Rate 97 H Respiratory 18 Rate Blood Pressure 136/92 O2 Sat by Pulse 98 Oximetry ED Medical Decision Making - Lab Data Result diagrams: 03/11/20 22:01 03/11/20 22:01 - EKG Data -: EKG Interpreted by Md EKG shows normal: sinus rhythm, axis, intervals, QRS complexes, ST-T waves Rate: normal - EKG Data Interpretation: no acute changes, LVH - Radiology Data Radiology results: report reviewed, image reviewed - Medical Decision Making Workup unremarkable. Symptoms have been ongoing for more than a month at this point. EKG shows no ST changes. Troponin negative. D-dimer elevated, so CTA was obtained, which was negative for any acute findings. Pt also likely suffereiing from anxiety due to the of her mother. Will d/c home at this time. Outpt f/u advised. Return precautions given. - Differential Diagnosis ACS, PE, anxiety Critical care attestation.: If time is entered above; I have spent that time in minutes in the direct care of this critically ill patient, excluding procedure time. ED Disposition Clinical Impression: Back pain, Anxiety Disposition: - TO HOME OR SELFCARE Is pt being admited?: No Condition: Stable Instructions: Back Pain (ED), Anxiety (ED) Prescriptions: methOCARBAMOL [Robaxin TAB] 500 mg PO Q8HR PRN #20 tablet PRN Reason: Muscle Spasm Referrals: PRIMARY CARE, [Primary Care Provider] - 3-5 Days [facility] [Provider Group] - 3-5 Days Time of Disposition: 00:33
--- NOTE | 2020-03-11 22:32 | XRay Report ---
CHEST 1 VIEW INDICATION / CLINICAL INFORMATION: chest pain. COMPARISON: 02/20/2020 FINDINGS: SUPPORT DEVICES: None. HEART / MEDIASTINUM: No significant abnormality. LUNGS / PLEURA: No significant pulmonary or pleural abnormality. No pneumothorax. ADDITIONAL FINDINGS: No significant additional findings. IMPRESSION: No acute pulmonary or pleural abnormality. No change from 02/20/2020 Signer Name: Eliseo Juan MD FACNithin Signed: 03/11/2020 10:27 PM Workstation Name: [id number]
[2020-03-11 22:38] LABS: BUN/Creatinine Ratio 14; Blood Urea Nitrogen 13 mg/dL (7-17); Calcium 9.5 mg/dL (8.4-10.2); Hemolysis Index 5
[2020-03-11 22:53] LABS: Bilirubin,Urine NEG (Negative); Blood,Urine NEG (Negative); Color,Urine Yellow (Yellow); Hyaline Casts,Urine 2 /LPF; Mucus,Urine FEW /HPF; Protein,Urine <15 mg/dL mg/dL (Negative); Urobilinogen,Urine < 2.0 mg/dL (<2.0)
--- NOTE | 2020-03-12 00:26 | Cat Scan Report ---
CTA CHEST WITH IV CONTRAST INDICATION: Left-sided chest pain TECHNIQUE: Axial CT images were obtained through the chest after injection of IV contrast. Coronal oblique 2-D reconstruction images were produced. 3 plane MIP reconstruction images were produced at an waygum workstation. All CTs at this facility utilize dose reduction techniques including automated expos ure control, iterative reconstruction and weight based dosing when appropriate to reduce patient radi ation dose to as low as reasonable achievable. COMPARISON: CTA of the chest, 10/27/2019 FINDINGS: Evaluation of the pulmonary arteries demonstrates no evidence of central or segmental filling defects to suggest pulmonary embolism. The heart is normal in size. The thoracic aorta is normal in caliber. Evaluation of the lung parenchyma demonstrates no focal airspace disease or pleural effusion. Limited imaging of the upper abdomen demonstrates continued stability of the 2.4 cm low-density left adrenal mass, unchanged from the previous CT of the abdomen and pelvis from 02/13/2019. Evaluation of bony structures demonstrates no evidence of acute bony abnormality. Soft tissue structures appear britt ssly normal. IMPRESSION: 1. No evidence of pulmonary embolism or acute parenchymal process. 2. Stable appearance of low density left adrenal mass most compatible with an adrenal adenoma. Signer Name: Tanisha Cárdenas MD Signed: 03/12/2020 12:21 AM Workstation Name: [id number]
== END 2020-03-12 00:57 | disposition home or self-care (01) ==
LOC: ED 19:49
DX: M54.89 Other dorsalgia (principal); F41.9 Anxiety disorder, unspecified; I10 Essential (primary) hypertension; K21.9 Gastro-esophageal reflux disease without esophagitis; M13.88 Other specified arthritis, other site; E03.9 Hypothyroidism, unspecified; Z90.79 Acquired absence of other genital organ(s); Z88.6 Allergy status to analgesic agent
CPT/HCPCS: 36415; 71045; 71275; 80048; 81001; 84484; 85025; 85379; 85610; 85730; 93005; 99284; Q9967

== ENCOUNTER 2020-07-01 22:48 | Emergency (ER) | payer MEDICARE ==
[2020-07-01] MEDS ORDERED: ASPIRIN 325 MG TAB PO ONE (23:05)
--- NOTE | 2020-07-01 23:58 | XRay Report ---
CHEST 1 VIEW INDICATION: Chest Pain. COMPARISON: 03/11/2020 FINDINGS: Support devices: None. Heart: Within normal limits. Lungs/Pleura: No acute air space or interstitial disease. Additional findings: None. IMPRESSION: No acute abnormality. Signer Name: Garrett Akins MD Signed: 07/01/2020 11:54 PM Workstation Name: [id number]
[2020-07-02 00:05] LABS: Basophils % (Auto) 0.2 % (0.0-1.8); Eosinophils # (Auto) 0.1 K/mm3 (0.0-0.4); Hematocrit 38.5 % (30.3-42.9); Lymphocytes # (Auto) 1.5 K/mm3 (1.2-5.4); Mean Corpuscular HGB Conc 34 % (30-34); Mean Corpuscular Volume 96 fl (79-97); Monocytes # (Auto) 0.5 K/mm3 (0.0-0.8); Monocytes % (Auto) 6.6 % (0.0-7.3); Platelet Count 311 K/mm3 (140-440); Red Blood Count 4.02 M/mm3 (3.65-5.03); Red Cell Distribution Width 12.9 % (13.2-15.2)
[2020-07-02 00:29] LABS: BUN/Creatinine Ratio 15; Blood Urea Nitrogen 15 mg/dL (7-17); Calcium 9.5 mg/dL (8.4-10.2); Hemolysis Index 11
--- NOTE | 2020-07-02 04:11 | Emergency Department Report ---
ED Chest Pain HPI - General Chief Complaint: Chest Pain Stated Complaint: CHEST PAIN, DARIO Time Seen by Provider: 07/02/20 03:28 Source: patient Mode of arrival: Ambulatory Limitations: No Limitations - History of Present Illness Initial Comments: This is a 54-year-old female presents to the emergency department from home with complaint of some left-sided chest pain and left upper back pain that started after a large crate hit her on the back of a truck and almost caused her to fall off of the moving truck. The patient was helping someone move something when this incident occurred. The pain worsens with movement of her left arm and with certain movements of her torso. She has a past medical history of hypothyroidism, GERD, anxiety, hypertension. She has not taken anything for symptoms prior to presentation. No recent travel or sick contacts at home. She denies any tobacco or illicit drug use. Her primary care physician is a Dr. Dubose. - Related Data Previous Rx's Medication Instructions Recorded Last Taken Type hydroCHLOROthiazide [HCTZ] 25 mg PO QDAY #30 tablet 02/20/20 Unknown Rx methOCARBAMOL [Robaxin TAB] 500 mg PO Q8HR PRN #20 tablet 07/02/20 Unknown Rx Allergies Allergy/AdvReac Type Severity Reaction Status Date / Time codeine Allergy Anaphylaxis Verified 07/01/20 23:02 hydrocodone Allergy Shortness Verified 02/20/20 14:36 of Breath ibuprofen Allergy Shortness Verified 02/20/20 14:57 of Breath tramadol Allergy Itching Verified 02/20/20 14:36 Heart Score - HEART Score History: Slightly suspicious EKG: Normal Age: 45-65 Risk factors: 1-2 risk factors Troponin: < normal limit HEART Score: 2 - Critical Actions Critical Actions: 0-3 pts:0.9-1.7%risk of adverse cardiac event.Candidate for discharge ED Review of Systems ROS: Stated complaint: CHEST PAIN, DARIO Other details as noted in HPI Comment: All other systems reviewed and negative Constitutional: denies: chills, fever Eyes: denies: eye pain, vision change ENT: denies: ear pain, throat pain Respiratory: shortness of breath. denies: cough Cardiovascular: chest pain. denies: edema Gastrointestinal: denies: abdominal pain, vomiting Genitourinary: denies: dysuria, discharge Musculoskeletal: denies: back pain, arthralgia Skin: denies: rash, lesions Neurological: denies: headache, weakness, numbness, paresthesias ED Past Medical Hx - Past Medical History Hx Hypertension: Yes Hx CVA: No Hx Heart Attack/AMI: No Hx Congestive Heart Failure: No Hx Diabetes: No Hx Deep Vein Thrombosis: No Hx Pulmonary Embolism: No Hx GERD: Yes Hx Liver Disease: No Hx Renal Disease: No Hx Sickle Cell Disease: No Hx Arthritis: Yes (osteo) Hx Headaches / Migraines: No Hx Seizures: No Hx Kidney Stones: No Hx Psychiatric Treatment: Yes (ANXIETY) Hx Asthma: No Hx COPD: No Hx Tuberculosis: No Hx Dementia: No Hx HIV: No Additional medical history: Hypothyroid, Bursitis, obese - Surgical History Additional Surgical History: thyroidectomy, goiter removal - Social History Smoking Status: Never Smoker Substance Use Type: None - Medications Home Medications: Home Medications Medication Instructions Recorded Confirmed Last Taken Type hydroCHLOROthiazide [HCTZ] 25 mg PO QDAY #30 tablet 02/20/20 Unknown Rx methOCARBAMOL [Robaxin TAB] 500 mg PO Q8HR PRN #20 tablet 07/02/20 Unknown Rx ED Physical Exam - General Limitations: No Limitations - Other Other exam information: GENERAL: The patient is well-developed well-nourished. HENT: Normocephalic. Atraumatic. Patient has moist mucous membranes. EYES: Extraocular motions are intact. NECK: Supple. Trachea is midline. CHEST/LUNGS: Clear to auscultation. There is no respiratory distress noted. There is reproducible tenderness to palpation along the left side of the chest wall. No crepitus or deformity. HEART/CARDIOVASCULAR: Regular. There is no tachycardia. There is no murmur. ABDOMEN: Abdomen is soft, nontender. Patient has normal bowel sounds. SKIN: Skin is warm and dry. NEURO: The patient is awake, alert, and oriented. The patient is cooperative. The patient has no focal neurologic deficits. Normal speech. MUSCULOSKELETAL: There is no tenderness or deformity. There is no limitation range of motion. BACK: No midline thoracic or lumbar tenderness to palpation. There is reproducible left paraspinal thoracic tenderness to palpation. ED Course Vital Signs 07/01/20 07/02/20 07/02/20 22:58 03:30 03:45 Temperature 98.5 F Pulse Rate 85 79 Respiratory 20 18 Rate Blood Pressure 156/76 125/76 115/65 Blood Pressure [Left] O2 Sat by Pulse 100 71 L 100 Oximetry 07/02/20 07/02/20 07/02/20 04:00 04:15 04:36 Temperature Pulse Rate 72 73 72 Respiratory 10 L 14 18 Rate Blood Pressure 124/78 123/84 Blood Pressure 119/69 [Left] O2 Sat by Pulse 99 99 100 Oximetry CORDELL score - Cordell Score Age > 65: (0) No Aspirin use within the Past 7 Days: (0) No 3 or more CAD Risk Factors: (0) No 2 or more Angina events in past 24 hrs: (1) Yes Known CAD with more than 50% Stenosis: (0) No Elevated Cardiac Markers: (0) No ST Deviation Greater than 0.5mm: (0) No CORDELL Score: 1 ED Medical Decision Making - Lab Data Result diagrams: 07/01/20 23:39 07/01/20 23:39 - EKG Data -: EKG Interpreted by Me EKG shows normal: sinus rhythm, axis, intervals, QRS complexes, ST-T waves Rate: normal - EKG Data When compared to previous EKG there are: no significant change Interpretation: normal EKG, unchanged when compared t (03/11/20) - Radiology Data Radiology results: image reviewed interpreted by me: Chest x-ray does not show any acute process. There are no pleural effusions, obvious pneumonia and there is no pneumothorax. No significant cardiomegaly. - Medical Decision Making This patient presents to the emergency department with complaint of some left- sided chest wall pain, and left upper back pain, after she was hit by a large crate while helping someone move. On examination the heart and lung sounds are normal to auscultation. There is reproducible chest pain and upper back pain to palpation without crepitus or deformity. An EKG was done that does not have any morphology consistent with ST elevation MS. Chest x-ray did not show any pneumonia, pneumothorax, rib fractures, pleural effusions, or any other acute process. The patient's labs have been unremarkable including CBC, metabolic panel and negative troponins x2. Patient's chest pain appears more likely to be musculoskeletal as the symptoms began just after the patient was hit in the chest by a large crate and was also bracing herself as did not fall off of the truck. However, the patient will be set up for outpatient cardiology follow-up. Her contact information has been sent to [facility] [place] and someone from their office should be contacting her shortly for close outpatient follow-up as per our hospitals low risk chest pain protocol. She is also been instructed to follow-up with her primary care physician in the next few days, and to return to the closest emergency department with any worsening of her symptoms or with any acute distress. Vital signs have been reassuring throughout her ED course including being afebrile. Critical Care Time: No Critical care attestation.: If time is entered above; I have spent that time in minutes in the direct care of this critically ill patient, excluding procedure time. ED Disposition Clinical Impression: Atypical chest pain Back pain Qualifiers: Back pain location: thoracic back pain Chronicity: unspecified Back pain laterality: left Qualified Code(s): M54.6 - Pain in thoracic spine Hypertension Qualifiers: Hypertension type: essential hypertension Qualified Code(s): I10 - Essential (primary) hypertension Disposition: TO HOME OR SELFCARE Is pt being admited?: No Condition: Stable Instructions: Chest Pain (ED), Costochondritis (ED), Hypertension (ED) Additional Instructions: Please follow-up with your primary care physician in the next few days. Your contact information has been sent over to the [facility] [place], a nd someone from their office should be contacting you shortly for close outpatient follow-up. Return to the emergency department with any worsening of your symptoms or with any acute distress. You have been prescribed a medication that is sedating and therefore should not be taken prior to driving, working, and responsible for children and in no way should be mixed with alcohol of any quantity. Prescriptions: methOCARBAMOL [Robaxin TAB] 500 mg PO Q8HR PRN #20 tablet PRN Reason: Muscle Spasm Referrals: MIQUEL GOMEZ [Other] - 3-5 Days DEYSI SUAREZ MD [Staff Physician] - 3-5 Days Time of Disposition: 04:11
[2020-07-02 04:36] VITALS: BP 119/69
== END 2020-07-02 04:36 | disposition home or self-care (01) ==
LOC: ED 22:48
DX: R07.89 Other chest pain (principal); M54.89 Other dorsalgia; I10 Essential (primary) hypertension; K21.9 Gastro-esophageal reflux disease without esophagitis; M13.88 Other specified arthritis, other site; F41.9 Anxiety disorder, unspecified; E03.9 Hypothyroidism, unspecified
CPT/HCPCS: 36415; 71045; 80048; 84484; 85025; 93005

== ENCOUNTER 2020-10-02 00:12 | Emergency (ER) | payer MEDICARE ==
[2020-10-02] MEDS ORDERED: ACETAMINOPHEN 500 MG TAB PO ONE (06:32)
--- NOTE | 2020-10-02 06:54 | Emergency Department Report ---
ED General Adult HPI - General Chief complaint: Pain General Stated complaint: HEADACHE BODY PAIN FROM FALLING Time Seen by Provider: 10/02/20 05:37 Source: patient Mode of arrival: Ambulatory Limitations: No Limitations - History of Present Illness Initial comments: This 54-year-old obese -[place] female past medical history of hypertension and gastroesophageal reflux disease presents emergency department complaining of having an episode of where she had fallen about 3 to 4 weeks ago while getting out of her truck which she thinks may have been precipitated by a vague episode lightheadedness. She reports no chest pain, no palpitations no exertional dyspnea no orthopnea no loss of vision no ringing in the ears no trauma no neck pain but still having some residual discomfort from the fall on her left side and presents to the ED to obtain a CT scan of the head and her torso to make sure she did not hurt anything. She reports no hemoptysis no hematemesis no hematochezia. Radiation: non-radiation Quality: aching, dull Improves with: none Worsens with: none Associated Symptoms: denies other symptoms Treatments Prior to Arrival: none - Related Data Previous Rx's Medication Instructions Recorded Last Taken Type hydroCHLOROthiazide [HCTZ] 25 mg PO QDAY #30 tablet 02/20/20 Unknown Rx methOCARBAMOL [Robaxin TAB] 500 mg PO Q8HR PRN #20 tablet 07/02/20 Unknown Rx Allergies Allergy/AdvReac Type Severity Reaction Status Date / Time codeine Allergy Anaphylaxis Verified 07/01/20 23:02 hydrocodone Allergy Shortness Verified 02/20/20 14:36 of Breath ibuprofen Allergy Shortness Verified 02/20/20 14:57 of Breath tramadol Allergy Itching Verified 02/20/20 14:36 ED Review of Systems ROS: Stated complaint: HEADACHE BODY PAIN FROM FALLING Other details as noted in HPI Comment: All other systems reviewed and negative ED Past Medical Hx - Past Medical History Hx Hypertension: Yes Hx CVA: No Hx Heart Attack/AMI: No Hx Congestive Heart Failure: No Hx Diabetes: No Hx Deep Vein Thrombosis: No Hx Pulmonary Embolism: No Hx GERD: Yes Hx Liver Disease: No Hx Renal Disease: No Hx Sickle Cell Disease: No Hx Arthritis: Yes (osteo) Hx Headaches / Migraines: No Hx Seizures: No Hx Kidney Stones: No Hx Psychiatric Treatment: Yes (ANXIETY) Hx Asthma: No Hx COPD: No Hx Tuberculosis: No Hx Dementia: No Hx HIV: No Additional medical history: Hypothyroid, Bursitis, obese - Surgical History Additional Surgical History: thyroidectomy, goiter removal, x 2, l shoulder lipoma - Social History Smoking Status: Never Smoker Substance Use Type: None - Medications Home Medications: Home Medications Medication Instructions Recorded Confirmed Last Taken Type hydroCHLOROthiazide [HCTZ] 25 mg PO QDAY #30 tablet 02/20/20 Unknown Rx methOCARBAMOL [Robaxin TAB] 500 mg PO Q8HR PRN #20 tablet 07/02/20 Unknown Rx ED Physical Exam - General Limitations: No Limitations General appearance: alert, in no apparent distress - Head Head exam: Present: atraumatic, normocephalic - Eye Eye exam: Present: normal appearance, PERRL, EOMI. Absent: nystagmus Pupils: Present: normal accommodation - ENT ENT exam: Present: mucous membranes moist - Neck Neck exam: Present: normal inspection, full ROM - Respiratory Respiratory exam: Present: normal lung sounds bilaterally, chest wall tenderness (She reports mild tenderness to the lower anterior rib region on the left side around the area of the cartilage however there is no bruising swelling no subcutaneous emphysema. Over the entire thoracic cage there is no step-off or any of the previous symptoms that were mentioned.). Absent: respiratory distress, wheezes, rales, rhonchi, decreased breath sounds - Cardiovascular Cardiovascular Exam: Present: regular rate, normal rhythm. Absent: systolic murmur, diastolic murmur, rubs, gallop - GI/Abdominal GI/Abdominal exam: Present: soft, normal bowel sounds - Extremities Exam Extremities exam: Present: normal inspection - Back Exam Back exam: Present: normal inspection. Absent: CVA tenderness (R), CVA tende rness (L), paraspinal tenderness, vertebral tenderness - Neurological Exam Neurological exam: Present: alert, oriented X3, CN II-XII intact, normal gait. Absent: motor sensory deficit - Psychiatric Psychiatric exam: Present: normal affect, normal mood - Skin Skin exam: Present: warm, dry, intact, normal color. Absent: rash ED Course Vital Signs 10/02/20 00:15 Temperature 97.6 F Pulse Rate 84 Respiratory 18 Rate Blood Pressure 158/78 O2 Sat by Pulse 98 Oximetry ED Medical Decision Making - Medical Decision Making 54-year-old -[place] female with past medical history of hypertension presents to the ED with continued impending chronic pain examination does not yield any urgent or emergent medical conditions at current she is ambulatory with no symptoms stable vital signs and orthostatically stable as well with a normal ear examination. Does not appear to be consistent with benign positional vertigo although further testing in mechanism may be needed. Advised of the need to follow-up with internal medicine provider or primary care to initiate further ED evaluation of the symptoms and [id number] pain management as she does have a host of allergies. Critical care attestation.: If time is entered above; I have spent that time in minutes in the direct care of this critically ill patient, excluding procedure time. ED Disposition Clinical Impression: Musculoskeletal pain Disposition: DC- TO HOME OR SELFCARE Is pt being admited?: No Does the pt Need Aspirin: No Condition: Stable Instructions: Musculoskeletal Pain Referrals: MIGUEL LAFLEUR [Primary Care Provider] - 3-5 Days YULISSA CANDELARIA MD [Staff Physician] - 3-5 Days
[2020-10-02 09:05] VITALS: BP 134/89
== END 2020-10-02 08:48 | disposition home or self-care (01) ==
LOC: ED 00:12
DX: M79.18 Myalgia, other site (principal); K21.9 Gastro-esophageal reflux disease without esophagitis; M19.90 Unspecified osteoarthritis, unspecified site; F41.9 Anxiety disorder, unspecified; E03.9 Hypothyroidism, unspecified; Z79.899 Other long term (current) drug therapy; Z88.6 Allergy status to analgesic agent; Z88.8 Allergy status to other drugs, medicaments and biological substances; Z98.890 Other specified postprocedural states
CPT/HCPCS: 99282

== ENCOUNTER 2021-10-06 10:50 | Outpatient (CLI) | payer MEDICARE ==
--- NOTE | 2021-10-07 11:55 | Mammography Report ---
BILATERAL DIGITAL DIAGNOSTIC MAMMOGRAM WITH CAD , 10/06/2021 BILATERAL COMPLETE BREAST ULTRASOUND CLINICAL INFORMATION / INDICATION: The patient reports generalized pain in the right breast. TECHNIQUE: Digital bilateral mammographic imaging was performed. Complete ultrasound of all four (4) quadrants was performed. This examination was interpreted with the benefit of Computer-Aided Detectio n (CAD) analysis. COMPARISON: Bilateral mammogram, 08/06/2020 from [facility] [place]. Bilateral mammogram, 07/06/2018 from [facility]. FINDINGS: Breast Density: There are scattered areas of fibroglandular density. MAMMOGRAPHIC FINDINGS: No dominant mass, suspicious calcifications, or architectural distortion in ei ther breast. ULTRASOUND FINDINGS: Complete sonographic evaluation of all 4 quadrants and retroareolar region was p erformed. Right breast: Sonographic evaluation of the right breast demonstrates no evidence of suspicious solid mass or shadowing. There is a 6 mm oval cyst at the 2:00 position 7 cm from the nipple. No abnormal lymph nodes are noted in the right axilla. There is no focal abnormality to account for the patient's right breast pain. Left breast: Sonographic evaluation of the left breast demonstrates an oval hypoechoic predominantly cystic nodule at the 4:00 periareolar location measuring 0.9 x 0.6 cm. There is no associated vascula rity. A second similar appearing oval hypoechoic nodule measuring 3 mm is noted at the 11:00 position 8 cm from the nipple. No abnormal lymph nodes are noted in the left axilla. IMPRESSION: 1. No mammographic or sonographic abnormality to account for the patient's right breast pain. Therefo re, clinical correlation is recommended. 2. Incidental finding of two oval cystic appearing nodules in the left breast as described above. The se have a benign sonographic appearance and most likely represent complicated cysts. A six-month foll ow-up left breast ultrasound is recommended to confirm stability. Follow up recommendation: Short term follow up in 6 months. BI-RADS Category 3: Probably Benign. Followup in 6 months. A "normal" or negative report should not discourage follow up or biopsy of a clinically significant f inding. A written summary of these findings will be mailed to the patient. The patient will be entered into a mammography reporting system which will generate a reminder letter for the patient's next appointmen t at the appropriate interval. According to the [employer], yearly mammograms are recommended starting at age 40 and continuing as long as a woman is in good health. Breast MRI is recommended for women with an singh roximately 20-25% or greater lifetime risk of breast cancer, including women with a strong family his tory of breast or ovarian cancer and women who have been treated for Hodgkin's disease. Signer Name: Tanisha Cárdenas MD Signed: 10/07/2021 11:51 AM Workstation Name: [id number]
== END 2021-10-06 10:51 | disposition home or self-care (01) ==
LOC: MAMMO 10:50
PROVIDERS: ATTEND Advanced Practice Midwife
DX: N60.01 Solitary cyst of right breast (principal); N63.23 Unspecified lump in the left breast, lower outer quadrant
CPT/HCPCS: 77066

== ENCOUNTER 2021-10-24 13:12 | Emergency (ER) | payer MEDICARE ==
--- NOTE | 2021-10-24 14:41 | Emergency Department Report ---
ED N/V/D HPI - General Chief complaint: Nausea/Vomiting/Diarrhea Stated complaint: N/V Time Seen by Provider: 10/24/21 14:40 Source: patient Mode of arrival: Ambulatory Limitations: No Limitations - History of Present Illness Initial comments: 55-year-old female with a past medical history of thyroid disease, hypertension and GERD presents to the ER today with complaints of nausea and vomiting. Patient states her symptoms started Wednesday. She states that she is concerned it could be related to food poisoning because it started after she ate chicken from a restaurant called [employer]. She states that another family member who also ate the chicken reported somewhat similar symptoms. She also reports associated cramping to the left side of her abdomen, and she states that she been having frequent bowel movements but it has not been diarrhea. She denies any hematemesis or coffee-ground emesis. She denies any melena or hematochezia or mucus in the stool. She denies any fever chills or UTI symptoms. She denies any recent travel or recent antibiotic use. Abdominal surgeries significant for C-sections only. She is postmenopausal. MD complaint: nausea, vomiting -: days(s) (4) - Related Data Previous Rx's Medication Instructions Recorded Last Taken Type hydroCHLOROthiazide [HCTZ] 25 mg PO QDAY #30 tablet 02/20/20 Unknown Rx methOCARBAMOL [Robaxin TAB] 500 mg PO Q8HR PRN #20 tablet 07/02/20 Unknown Rx methOCARBAMOL [Robaxin TAB] 750 mg PO Q8H #20 tablet 10/02/20 Unknown Rx Famotidine [Pepcid] 20 mg PO BID #30 tablet 10/24/21 Unknown Rx Hyoscyamine Subl [Levsin Sl 0.125 0.125 mg SL Q6HR PRN #20 tab 10/24/21 Unknown Rx TAB] Ondansetron [Zofran Odt] 4 mg PO Q8HR #15 tab.rapdis 10/24/21 Unknown Rx Allergies Allergy/AdvReac Type Severity Reaction Status Date / Time codeine Allergy Anaphylaxis Verified 07/01/20 23:02 hydrocodone Allergy Shortness Verified 02/20/20 14:36 of Breath ibuprofen Allergy Shortness Verified 02/20/20 14:57 of Breath tramadol Allergy Itching Verified 02/20/20 14:36 ED Review of Systems ROS: Stated complaint: N/V Other details as noted in HPI Comment: All other systems reviewed and negative Constitutional: denies: chills, fever Eyes: denies: eye pain, eye discharge, vision change ENT: denies: ear pain, throat pain Respiratory: denies: cough, shortness of breath, wheezing Cardiovascular: denies: chest pain, palpitations, dyspnea on exertion, edema, syncope, paroxysmal nocturnal dyspnea Gastrointestinal: abdominal pain, nausea, vomiting. denies: diarrhea, constipation, hematemesis, melena, hematochezia Genitourinary: denies: urgency, dysuria, frequency, hematuria, discharge, abnormal menses, dyspareunia Musculoskeletal: denies: back pain, joint swelling, arthralgia Skin: denies: rash, lesions, change in color, change in hair/nails, pruritus Neurological: denies: headache, weakness, numbness, paresthesias, confusion, abnormal gait, vertigo Psychiatric: denies: anxiety, depression, auditory hallucinations, visual hallucinations, homicidal thoughts, suicidal thoughts Hematological/Lymphatic: denies: easy bleeding, easy bruising, swollen glands ED Past Medical Hx - Past Medical History Hx Hypertension: Yes Hx CVA: No Hx Heart Attack/AMI: No Hx Congestive Heart Failure: No Hx Diabetes: No Hx Deep Vein Thrombosis: No Hx Pulmonary Embolism: No Hx GERD: Yes Hx Liver Disease: No Hx Renal Disease: No Hx Sickle Cell Disease: No Hx Arthritis: Yes (osteo) Hx Headaches / Migraines: No Hx Seizures: No Hx Kidney Stones: No Hx Psychiatric Treatment: Yes (ANXIETY) Hx Asthma: No Hx COPD: No Hx Tuberculosis: No Hx Dementia: No Hx HIV: No Additional medical history: Hypothyroid, Bursitis, obese - Surgical History Additional Surgical History: thyroidectomy, goiter removal, x 2, l shoulder lipoma - Social History Smoking Status: Never Smoker Substance Use Type: None - Medications Home Medications: Home Medications Medication Instructions Recorded Confirmed Last Taken Type hydroCHLOROthiazide [HCTZ] 25 mg PO QDAY #30 tablet 02/20/20 Unknown Rx methOCARBAMOL [Robaxin TAB] 500 mg PO Q8HR PRN #20 tablet 07/02/20 Unknown Rx methOCARBAMOL [Robaxin TAB] 750 mg PO Q8H #20 tablet 10/02/20 Unknown Rx Famotidine [Pepcid] 20 mg PO BID #30 tablet 10/24/21 Unknown Rx Hyoscyamine Subl [Levsin Sl 0.125 0.125 mg SL Q6HR PRN #20 tab 10/24/21 Unknown Rx TAB] Ondansetron [Zofran Odt] 4 mg PO Q8HR #15 tab.rapdis 10/24/21 Unknown Rx ED Physical Exam - General Limitations: No Limitations General appearance: alert, in no apparent distress - Head Head exam: Present: atraumatic, normocephalic, normal inspection - Eye Eye exam: Present: normal appearance, PERRL, EOMI Pupils: Present: normal accommodation - Respiratory Respiratory exam: Present: normal lung sounds bilaterally. Absent: respiratory distress, wheezes, rales, rhonchi - Cardiovascular Cardiovascular Exam: Present: regular rate, normal rhythm, normal heart sounds - GI/Abdominal GI/Abdominal exam: Present: soft, tenderness (Left upper quadrant). Absent: distended, guarding, rebound - Neurological Exam Neurological exam: Present: alert, oriented X3, CN II-XII intact, normal gait - Psychiatric Psychiatric exam: Present: normal affect, normal mood - Skin Skin exam: Present: intact ED Course Vital Signs 10/24/21 10/24/21 14:33 17:37 Temperature 98.2 F 97.7 F Pulse Rate 93 H 79 Respiratory 18 16 Rate Blood Pressure 157/91 Blood Pressure 154/75 [Right] O2 Sat by Pulse 99 100 Oximetry ED Medical Decision Making - Lab Data Result diagrams: 10/24/21 15:06 10/24/21 15:06 - Medical Decision Making 1745: Labs reviewed and unremarkable. Patient currently sitting in the recliner comfortably. She has a nonsurgical abdominal exam at this time. She is not toxic or ill-appearing. She has not had any vomiting during stay. All vital signs are stable. She appears well-hydrated. She is neurologically intact with a normal gait. Discussed all results with patient. Symptoms could be viral or related to food poisoning but at this time there is no indication for any additional testing or emergent treatment or admission. Patient will be given medication to help her symptoms. She understands to return to the ER if her symptoms worsens in any way. - Differential Diagnosis Gastritis, gastroenteritis,pancreatitis, electrolyte abnormality, UTI Critical care attestation.: If time is entered above; I have spent that time in minutes in the direct care of this critically ill patient, excluding procedure time. ED Disposition Clinical Impression: Nausea and vomiting, Left upper quadrant abdominal pain Disposition: HOME / SELF CARE / HOMELESS Is pt being admited?: No Does the pt Need Aspirin: No Condition: Stable Instructions: Gastritis, Adult, [id number], Abdominal Pain, Adult, Nausea and Vomiting, Adult Additional Instructions: I recommend that you take the Zofran as prescribed to help with nausea vomiting. Take the Levsin to help with the abdominal cramping. Continue taking your medication for your reflux disease. Follow-up with your primary care doctor next week. Return to the ER if your symptoms worsens in any way. Prescriptions: Hyoscyamine Subl [Levsin Sl 0.125 TAB] 0.125 mg SL Q6HR PRN #20 tab PRN Reason: Abdominal cramps Famotidine [Pepcid] 20 mg PO BID #30 tablet Ondansetron [Zofran Odt] 4 mg PO Q8HR #15 tab.michelle Referrals: PRIMARY CARE, [Primary Care Provider] - 3-5 Days Time of Disposition: 16:55
[2021-10-24] MEDS ORDERED: ONDANSETRON 4 MG ODT TAB PO ONE (14:51)
[2021-10-24] MEDS ORDERED: FAMOTIDINE 20 MG TAB PO ONE (14:51)
[2021-10-24] MEDS ORDERED: HYOSCYAMINE SUBL 0.125 MG TAB SL ONE (14:51)
[2021-10-24 15:06] LABS: Bacteria,Urine 2+ /HPF (Negative); Bilirubin,Urine NEG (Negative); Blood,Urine NEG (Negative); Color,Urine Amber (Yellow); Mucus,Urine 1+ /HPF; Protein,Urine <15 mg/dL mg/dL (Negative); Urobilinogen,Urine < 2.0 mg/dL (<2.0)
[2021-10-24 15:44] LABS: Hematocrit 41.6 % (30.3-42.9); Hemoglobin 13.9 gm/dl (10.1-14.3); Mean Corpuscular HGB Conc 33 % (30-34); Mean Corpuscular Volume 96 fl (79-97); Platelet Count 370 K/mm3 (140-440); Red Blood Count 4.36 M/mm3 (3.65-5.03); Red Cell Distribution Width 13.4 % (13.2-15.2)
[2021-10-24 15:48] LABS: Basophils % (Auto) 0.3 % (0.0-1.8); Eosinophils % (Auto) 0.4 % (0.0-4.3); Lymphocytes # (Auto) 1.9 K/mm3 (1.2-5.4); Lymphocytes % (Auto) 22.6 % (13.4-35.0); Monocytes # (Auto) 0.7 K/mm3 (0.0-0.8); Monocytes % (Auto) 8.5 % (0.0-7.3)
[2021-10-24 16:15] LABS: Alanine Aminotransferase 18 units/L (7-56); Albumin 4.4 g/dL (3.9-5); BUN/Creatinine Ratio 13; Blood Urea Nitrogen 12 mg/dL (7-17); Calcium 10.2 mg/dL (8.4-10.2); Hemolysis Index 5
[2021-10-24 17:43] VITALS: BP 154/75
== END 2021-10-24 17:42 | disposition home or self-care (01) ==
LOC: ED 13:12
DX: R11.2 Nausea with vomiting, unspecified (principal); R10.12 Left upper quadrant pain; I10 Essential (primary) hypertension; Z88.5 Allergy status to narcotic agent; Z88.6 Allergy status to analgesic agent
CPT/HCPCS: 36415; 80053; 81001; 83690; 84703; 85025; 99283; J3490; Q0162

== ENCOUNTER 2022-06-18 12:02 | Outpatient (CLI) | payer MEDICARE ==
--- NOTE | 2022-06-18 15:08 | Mammography Report ---
BILATERAL DIGITAL DIAGNOSTIC MAMMOGRAM , 06/18/2022 LEFT LIMITED BREAST ULTRASOUND CLINICAL INFORMATION / INDICATION: This is a 6 month follow-up mammogram and ultrasound TECHNIQUE: Digital bilateral mammographic imaging was performed. Limited ultrasound was performed. COMPARISON: Prior mammogram and ultrasound 10/06/2021, as well as older mammogram 08/06/2020 and 07/06 FINDINGS: Breast Density: The breasts are almost entirely fatty. MAMMOGRAPHIC FINDINGS: No dominant mass, suspicious calcifications, or architectural distortion in ei ther breast. Stable left breast nodularity. Overall, no interval change. ULTRASOUND FINDINGS: Targeted ultrasound evaluation was performed of the area of interest. Previous ly noted hypoechoic mass at 4:00 is grossly stable in appearance, as well as stable mammographically. Additionally, the 5 mm hypoechoic mass at 11:00, 8 cm from nipple is stable in size. It now demonstra priya increasing rim calcification consistent with benign oil cyst. This is confirmed mammographically. IMPRESSION: No mammographic or sonographic evidence of malignancy. Stable benign left nodularity. Follow up recommendation: Routine yearly screening mammogram. BI-RADS Category 2: BENIGN. A "normal" or negative report should not discourage follow up or biopsy of a clinically significant f inding. A written summary of these findings will be mailed to the patient. The patient will be entered into a mammography reporting system which will generate a reminder letter for the patient's next appointmen t at the appropriate interval. According to the [employer], yearly mammograms are recommended starting at age 40 and continuing as long as a woman is in good health. Breast MRI is recommended for women with an sinhg roximately 20-25% or greater lifetime risk of breast cancer, including women with a strong family his tory of breast or ovarian cancer and women who have been treated for Hodgkin's disease. Signer Name: Yoselyn Ernst MD Signed: 06/18/2022 3:03 PM Workstation Name: [id number]
== END 2022-06-18 12:03 | disposition home or self-care (01) ==
LOC: MAMMO 12:02
DX: R92.8 Other abnormal and inconclusive findings on diagnostic imaging of breast (principal)
CPT/HCPCS: 77066